=== PATIENT | female | born 1980 | race African-American/Black ===

== ENCOUNTER 2018-10-04 23:39 | Emergency (ER) | payer OTHER ==
[~2018-10-04] VITALS: Ht 165.1 cm; Wt 88.5 kg
[2018-10-04 23:45] VITALS: BP 124/51
--- NOTE | 2018-10-04 23:45 | NUR ---
PT AMBULATED TO BED 8.
--- NOTE | 2018-10-05 00:01 | NUR ---
38/F BIB RESPONSIBLE ADULT, C/O 11/24 [employer] R SHOULDER PAIN, RADIATING TO R ARM AND BACK, X1 DAY S/P FALL WHILE TAKING STUFF OUT FROM CAR. R SHOULDER WITHOUT ABNORMALITY, SWELLING, BRUISING OR ERYTHEMA, +CIRCULATION DISTALLY, LIMITED ROM DUE TO PAIN. PT DENIES HEAD TRAUMA, LOC OR N/V. PT AWAKE AND ALERT, SKIN NORMAL COLOR WARM AND DRY, RR EVEN AND UNLABORED. HX CHRONIC BACK PAIN RX PERCOCET THIS AM WITHOUT RELIEF; OTC MOTRIN 2HRS AGO WITHOUT RELIEF
--- NOTE | 2018-10-05 00:06 | NUR ---
Dr. Urbina examining patient.
[2018-10-05] MEDS ORDERED: MORPHINE SULFATE 4 MG/ML SYR IM ONE (00:10)
--- NOTE | 2018-10-05 00:34 | NUR ---
X-Ray at bedside.
[2018-10-05 01:05] VITALS: BP 115/47
== END 2018-10-05 01:05 | disposition home or self-care (01) ==
LOC: MED 23:39
DX: M25.511 Pain in right shoulder (principal)
CPT/HCPCS: 73020; 96372; 99283; J2270